=== PATIENT | male | born 1970 | race Caucasian/White ===

== ENCOUNTER 2017-08-25 15:48 | Emergency (ER) | payer OTHER ==
[~2017-08-25] VITALS: Ht 177.8 cm; Wt 108.9 kg
[2017-08-25] MEDS ORDERED: ACETAZOLAMIDE500 MG (16:03)
[2017-08-25] MEDS ORDERED: AMITRIPTYLINE H25 MG (16:06)
== END 2017-08-25 23:05 | disposition home or self-care (01) ==
LOC: ER 15:48
DX: L05.01 Pilonidal cyst with abscess (principal)